=== PATIENT | female | born 1995 | race Caucasian/White ===

== ENCOUNTER 2017-01-30 09:59 | Day surgery (SDC) | payer OTHER ==
[~2017-01-30] VITALS: Ht 157.5 cm; Wt 80.5 kg
[~2017-01-30 09:59] MED LIST: ACET-1600 PO; ASPI-650 PO
[2017-01-30] MEDS ORDERED: LACTATED RINGERS 1,000 ML IV SCH (10:21)
[2017-01-30] MEDS ORDERED: MIDAZOLAM 1 MG/ML, 2ML ONE (10:37)
[2017-01-30] MEDS ORDERED: FENTANYL PF 100 MCG/2ML ONE ×4 (10:38→13:25)
[2017-01-30 10:44] VITALS: BP 117/80
[2017-01-30] MEDS ORDERED: HYDROmorphone 1 MG/ML, 1ML IV PRN (11:30)
[2017-01-30] MEDS ORDERED: METOCLOPRAMIDE 5 MG/ML, 2ML IV PRN (11:30)
[2017-01-30] MEDS ORDERED: ONDANSETRON 2MG/ML, 2ML IVPush PRN (11:30)
[2017-01-30] MEDS ORDERED: PROMETHAZINE 25 MG/ML, 1ML IV PRN (11:30)
[2017-01-30] MEDS ORDERED: OXYcodone 5 MG/5 ML ORAL.SOL UDC PO PRN (11:30)
[2017-01-30] MEDS ORDERED: SILVER NITRATE STICK TP ONE (11:44)
[2017-01-30] MEDS ORDERED: BUPIVACAINE/PF-EPI 0.5% 1:200K ONE (11:44)
[2017-01-30] MEDS ORDERED: CLINDAMYCIN 150 MG/ML, 6ML ONE (11:55)
[2017-01-30] MEDS ORDERED: GLYCOPYRROLATE 0.2MG/1ML ONE (11:58)
[2017-01-30] MEDS ORDERED: PROPOFOL 10 MG/ML, 20ML ONE (11:58)
[2017-01-30] MEDS ORDERED: DEXAMETHASONE 4 MG/ML, 1ML ONE (11:58)
[2017-01-30] MEDS ORDERED: ONDANSETRON 2MG/ML, 2ML ONE (11:58)
[2017-01-30] MEDS ORDERED: NEOSTIGMINE 1 MG/ML, 10ML ONE (11:58)
[2017-01-30] MEDS ORDERED: ROCURONIUM 10 MG/ML ONE (11:58)
[2017-01-30] MEDS ORDERED: HYDROcodone/APAP 7.5-325MG/15ML UDC ONE (13:03)
[2017-01-30] MEDS: FENTANYL PF 100 MCG/2ML IV PRN ×3 (13:05→13:26)
[2017-01-30] MEDS ORDERED: HYDROcodone/APAP 7.5-325MG/15ML UDC PO PRN (13:30)
[2017-01-30] MEDS ORDERED: PROMETHAZINE 12.5 MG SUPP PR ONE (15:00)
== END 2017-01-30 16:00 ==
LOC: OUT 09:59
PROVIDERS: ATTEND Obstetrics & Gynecology
DX: Z30.2 Encounter for sterilization (principal); Z88.1 Allergy status to other antibiotic agents; Z91.018 Allergy to other foods; Z79.82 Long term (current) use of aspirin; Z88.0 Allergy status to penicillin
CPT/HCPCS: 36415; 58670; 81001; 84702; 85025; J1100; J2250; J2405; J2704; J2710; J3010; J7120; J3490